=== PATIENT | male | born 1960 ===

== ENCOUNTER 2017-07-26 12:39 | Emergency (ER) | payer BC ==
[2017-07-26 12:48] VITALS: BP 138/83; PULSE 58; TEMP 97; BMI 31.1
[2017-07-26 12:53] VITALS: RESP 18; O2SAT 99
[2017-07-26] MEDS ORDERED: Iohexol 240 (50 ml) PO ONE (13:51)
[2017-07-26] MEDS ORDERED: Sodium Chloride 0.9% 1,000 ML IV STA (13:52)
[2017-07-26] MEDS ORDERED: HYDROmorphone 0.5 mg/0.5 ml ISec ONE (14:07)
--- NOTE | 2017-07-26 14:14 | ED PDOC ---
HPI: Abdomen Time Seen by Provider: 07/26/17 13:14 Chief Complaint (Nursing): Abdominal Pain Chief Complaint (Provider): Abdominal Pain History Per: Patient History/Exam Limitations: no limitations Onset/Duration Of Symptoms: Days (x2) Current Symptoms Are (Timing): Still Present Additional Complaint(s): Denilson Duffy is a 56 year old male with previous medical history of diverticulitis, hypertension and diabetes, who presents to the emergency department with a complaint of lower abdominal pain associated with subjective fever, nausea, vomiting and diarrhea. Denied chills, dysuria, hematuria, constipation or bloody stools. PMD: Karthik Cho MD Past Medical History Reviewed: Historical Data, Nursing Documentation, Vital Signs Vital Signs: Last Vital Signs Temp 97 F L 07/26/17 12:50 Pulse 58 L 07/26/17 12:50 Resp 18 07/26/17 12:50 BP 138/83 07/26/17 12:50 Pulse Ox 99 07/26/17 16:55 - Medical History PMH: Diabetes, Diverticulitis, Gastritis, HTN, Hypercholesterolemia - Surgical History Surgical History: No Surg Hx - Family History Family History: States: Unknown Family Hx - Social History Current smoker - smoking cessation education provided: Yes Alcohol: Occasional Drugs: Denies - Home Medications Home Medications: Ambulatory Orders Medication Instructions Recorded Metoclopramide [Reglan] 10 mg PO Q8 PRN #30 tab 01/29/16 Naproxen [Naprosyn] 500 mg PO BID PRN #30 tab 01/29/16 Ciprofloxacin HCl [Cipro] 500 mg PO BID #20 tablet 04/22/16 Metronidazole [Flagyl] 1 tab PO QID #40 tablet 04/22/16 Oxycodone HCl/Acetaminophen 1 each PO Q6 PRN #15 tablet 04/22/16 [Percocet 5-325 mg Tablet] - Allergies Allergies/Adverse Reactions: Allergies Allergy/AdvReac Type Severity Reaction Status Date / Time No Known Allergies Allergy Verified 01/29/16 12:08 Review of Systems ROS Statement: Except As Marked, All Systems Reviewed And Found Negative Constitutional: Positive for: Fever (subjective). Negative for: Chills Gastrointestinal: Positive for: Nausea, Vomiting, Abdominal Pain (lower), Diarrhea. Negative for: Constipation, Melena Genitourinary Male: Negative for: Dysuria, Hematuria Physical Exam - Reviewed Nursing Documentation Reviewed: Yes Vital Signs Reviewed: Yes - Physical Exam Appears: Positive for: Well, Non-toxic, No Acute Distress Head Exam: Positive for: ATRAUMATIC, NORMAL INSPECTION, NORMOCEPHALIC Skin: Positive for: Normal Color Eye Exam: Positive for: Normal appearance ENT: Positive for: Normal ENT Inspection Neck: Positive for: Normal Cardiovascular/Chest: Positive for: Regular Rate, Rhythm, Chest Non Tender Respiratory: Positive for: Normal Breath Sounds, Accessory Muscle Use. Negative for: Decreased Breath Sounds, Respiratory Distress Gastrointestinal/Abdominal: Positive for: Soft, Tenderness (suprapubic). Negative for: Normal Exam Back: Positive for: Normal Inspection. Negative for: L CVA Tenderness, R CVA Tenderness Extremity: Positive for: Normal ROM. Negative for: Tenderness, Pedal Edema, Deformity Neurologic/Psych: Positive for: Alert, Oriented - Laboratory Results Result Diagrams: 07/26/17 14:04 07/26/17 14:04 - ECG O2 Sat by Pulse Oximetry: 99 (RA) Pulse Ox Interpretation: Normal Medical Decision Making Medical Decision Making: Initial Impression: Abdominal pain R/O diverticulitis Initial Plan: * CT ABD/pelvis with PO and IV contrast * CMP * Lipase * CBC * Dilaudid 1mg IVP * NS 1,000ml IV per 150mls/hr * Omnipaque 50ml PO * Zofran inj 4mg IV * Urine C&S * Urinalysis 1649 Abd/Pelvis CT Impression: No acute findings related to/accounting for the clinical presentation. Incidental finding(s): 1.Multiple small retroperitoneal, primarily periaortic and pericaval lymph nodes. 2.Diverticulosis without an acute inflammatory component or other Associated pathologic process. Time: 1700 --Upon provider reevaluation, patient is feeling better, medically stable and requires no further treatment in the ED at this time. Creatinine level noted at 1.9 and reported incidental findings to patient. Patient will be discharged home. Counseling was provided and all questions were answered regarding diagnosis and need for follow up with PC. There is agreement to discharge plan. Return if symptoms persist or worsen. Clinical Impression: Abdominal pain Scribe Attestation: Documented by Aida Gill, acting as a scribe for Kane Pressley MD. Provider Scribe Attestation: All medical record entries made by the Scribe were at my direction and personally dictated by me. I have reviewed the chart and agree that the record accurately reflects my personal performance of the history, physical exam, medical decision making, and the department course for this patient. I have also personally directed, reviewed, and agree with the discharge instructions and disposition. Disposition - Clinical Impression Clinical Impression: Abdominal pain - Patient ED Disposition Is Patient to be Admitted: No Counseled Patient/Family Regarding: Studies Performed, Diagnosis, Need For Followup - Disposition Referrals: [facility] [Outside] [facility] [Outside] Disposition: Routine/Home Disposition Time: 17:00 Condition: IMPROVED Additional Instructions: follow up with your primary doctor in 1-2 days you have lymph nodes on your CT and your kidney function is poor. return to the ED with any worsening or concerning symptoms Instructions: Lymphadenopathy (ED) Forms: [employer] (Congolese) Print Language: CYMRAES
[2017-07-26 14:17] LABS: RBC URINE 2 /hpf (0-3); URINE BILIRUBIN NEGATIVE (NEGATIVE); URINE BLOOD SMALL (NEGATIVE); URINE COLOR YELLOW (YELLOW); URINE GLUCOSE (UA) >=500 mg/dL (Normal); URINE KETONE NEGATIVE (NEGATIVE); URINE LEUKOCYTE ESTERASE NEG Leu/uL (Negative); URINE PROTEIN >=500 mg/dL (NEGATIVE); URINE UROBILINOGEN 0.2-1.0 mg/dL (0.2-1.0); WBC URINE 4 /hpf (0-5)
[2017-07-26 14:18] LABS: BASO # 0.1 K/uL (0.0-0.2); BASO % 0.8 % (0.0-2.0); EOS # 0.1 K/uL (0.0-0.7); EOS % 1.3 % (0.0-4.0); HEMATOCRIT 52.3 % (35.0-51.0); LYMPH # 1.9 K/uL (1.0-4.3); MEAN CELL VOLUME 89.7 fl (80.0-94.0); MEAN CORPUSCULAR HEMOGLOBIN 30.4 pg (27.0-31.0); MEAN CORPUSCULAR HGB CONC 33.9 g/dL (33.0-37.0); MEAN PLATELET VOLUME 8.4 fl (7.2-11.7); MONO # 1.4 K/uL (0.0-0.8); MONO % 14.3 % (0.0-10.0); NEUT # 6.1 K/uL (1.8-7.0); NEUT % 63.6 % (50.0-75.0); RED CELL DISTRIBUTION WIDTH 14.3 % (11.5-14.5); WHITE BLOOD COUNT 9.6 K/uL (4.8-10.8)
[2017-07-26 14:26] LABS: ALB/GLOB RATIO 1.1 (1.0-2.1); BILIRUBIN,TOTAL 0.2 mg/dl (0.2-1.3); CALCIUM 8.9 mg/dL (8.4-10.2); POTASSIUM 3.8 MMOL/L (3.6-5.0); TOTAL PROTEIN 6.9 G/DL (6.3-8.2)
[2017-07-26 14:37] LABS: GRANULAR CAST 0-1 /lpf (0-1); URINE BACTERIA MOD (<OCC)
--- NOTE | 2017-07-26 16:51 | CT ---
PROCEDURE: CT Abdomen without intravenous contrast HISTORY: Unspecified abdominal pain COMPARISON: 04/22/2016 TECHNIQUE: Axial images of the abdomen from lung bases to iliac crest without intravenous contrast enhancement. Coronal and sagittal reformats generated. Oral contrast was administered. Radiation dose: Total exam DLP = mGy-cm. This CT exam was performed using one or more of the following dose reduction techniques: Automated exposure control, adjustment of the mA and/or kV according to patient size, and/or use of iterative reconstruction technique. FINDINGS: LOWER THORAX: Unremarkable. LIVER: Abnormal attenuation to hepatic parenchyma likely areas of focal fatty sparing in an otherwise fatty liver. Elective ultrasound recommended for further evaluation of these findings which are more conspicuous on the current study than seen previously. GALLBLADDER AND BILE DUCTS: Unremarkable. PANCREAS: Unremarkable. No gross lesion or ductal dilatation. SPLEEN: Unremarkable. ADRENALS: Unremarkable. No mass. KIDNEYS AND URETERS: Unremarkable. No hydronephrosis. No solid mass. VASCULATURE: Unremarkable. No aortic aneurysm. BOWEL: Diverticulosis without an acute inflammatory component or other associated pathologic process. APPENDIX: Normal appendix. PERITONEUM: Unremarkable. No free fluid. No free air. LYMPH NODES: Small retroperitoneal lymph nodes identified none larger than 1.5 cm. Precise etiology, significance is unknown. BONES: No acute fracture. OTHER FINDINGS: Bilateral fat containing inguinal hernias. IMPRESSION: No acute findings related to/accounting for the clinical presentation. Incidental finding(s): 1. Multiple small retroperitoneal, primarily periaortic and pericaval lymph nodes. 2. Diverticulosis without an acute inflammatory component or other associated pathologic process. 3. Abnormal attenuation of the liver although this is likely fatty infiltration with focal areas of sparing. Elective ultrasound advised for further evaluation
== END 2017-07-26 17:14 | disposition home or self-care (01) ==
LOC: H.ER 12:39
DX: K57.90 Diverticulosis of intestine, part unspecified, without perforation or abscess without bleeding (principal); I10 Essential (primary) hypertension; E11.9 Type 2 diabetes mellitus without complications
CPT/HCPCS: 74176; 80053; 81003; 83690; 85025; 87086; 96374; 99282; J1170; J2405; J7040; Q9966

== ENCOUNTER 2017-10-15 13:58 | Emergency (ER) | payer BC, MEDICAID ==
[2017-10-15 13:59] VITALS: BMI 31.1
[2017-10-15 14:11] VITALS: RESP 16
[2017-10-15] MEDS ORDERED: Sodium Chloride 0.9% 1,000 ML IV STA ×2 (14:33→14:35)
[2017-10-15] MEDS ORDERED: Iohexol 240 (50 ml) PO ONE (14:34)
[2017-10-15] MEDS ORDERED: Iohexol 240 (50 ml) ONE (14:41)
[2017-10-15] MEDS ORDERED: Morphine 4 MG/ML VIAL ONE ×2 (14:41→18:40)
[2017-10-15 15:18] LABS: BASO # 0.1 K/uL (0.0-0.2); BASO % 0.4 % (0.0-2.0); EOS # 0.1 K/uL (0.0-0.7); EOS % 1.1 % (0.0-4.0); HEMOGLOBIN 17.4 g/dL (12.0-18.0); LYMPH # 1.5 K/uL (1.0-4.3); LYMPH % 11.9 % (20.0-40.0); MEAN CELL VOLUME 90.6 fl (80.0-94.0); MEAN CORPUSCULAR HGB CONC 33.1 g/dL (33.0-37.0); MEAN PLATELET VOLUME 8.7 fl (7.2-11.7); MONO % 15.4 % (0.0-10.0); NEUT # 9.2 K/uL (1.8-7.0); NEUT % 71.2 % (50.0-75.0); NRBC % 0.2 % (0.0-0.0); RBC 5.81 Mil/uL (4.40-5.90); RED CELL DISTRIBUTION WIDTH 14.2 % (11.5-14.5); WHITE BLOOD COUNT 12.8 K/uL (4.8-10.8)
[2017-10-15 15:38] LABS: ALBUMIN 3.5 g/dL (3.5-5.0); CALCIUM 8.7 mg/dL (8.4-10.2)
--- NOTE | 2017-10-15 19:15 | CT ---
EXAM: CT Abdomen and Pelvis Without Intravenous Contrast CLINICAL HISTORY: 56 years old, male; Pain; Abdominal pain; Other: Lower abd; Additional info: Llq pain, rectal bleeding TECHNIQUE: Axial computed tomography images of the abdomen and pelvis without intravenous contrast. All CT scans at this facility use one or more dose reduction techniques, viz.: automated exposure control; ma/kV adjustment per patient size (including targeted exams where dose is matched to indication; i.e. head); or iterative reconstruction technique. Coronal and sagittal reformatted images were created and reviewed. COMPARISON: No relevant prior studies available. FINDINGS: Lower thorax: No acute findings. ABDOMEN: Liver: No acute abnormality as visualized. Gallbladder and bile ducts: No acute abnormality as visualized. Ultrasound can provide more sensitive evaluation of the biliary system. Pancreas: No acute abnormality as visualized. Spleen: No splenomegaly. Adrenals: No acute abnormality as visualized. Kidneys and ureters: No obstructing stones. No hydronephrosis. Stomach and bowel: Colonic diverticula. Segment of sigmoid colon demonstrates bowel wall thickening and surrounding fluid and inflammatory stranding, appearance most consistent with acute diverticulitis. Evaluation limited as enteric contrast has not yet reached this portion of the colon. No small bowel obstruction. Appendix: No findings to suggest acute appendicitis. PELVIS: Bladder: No acute abnormality as visualized. Reproductive: No acute abnormality as visualized. ABDOMEN and PELVIS: Intraperitoneal space: No free air. Bones: Degenerative changes. Degenerative disc disease with disc osteophyte formation. Facet arthropathy. Associated impression on the central canal and neural foraminal narrowing affecting the lumbosacral spine. More sensitive evaluation can be performed with MRI as warranted. Soft tissues: Bilateral inguinal fat containing hernia, right greater than left. Vasculature: Mild atherosclerosis. No abdominal aortic aneurysm. Lymph nodes: Shotty nodes. Please note evaluation for underlying visceral lesions/abnormalities limited without intravenous contrast. IMPRESSION: Appearance consistent with acute diverticulitis. Please see additional details/findings as above. Some of the above findings may warrant followup evaluation.
--- NOTE | 2017-10-15 19:19 | ED PDOC ---
HPI: Abdomen Time Seen by Provider: 10/15/17 14:20 Chief Complaint (Nursing): Abdominal Pain Chief Complaint (Provider): Left sided abdominal pain, bloody diarrhea History Per: Patient History/Exam Limitations: no limitations Onset/Duration Of Symptoms: Days Outside of [place] travel?: No Current Symptoms Are (Timing): Still Present Additional Complaint(s): Pt reports severe LLQ pain and blood in watery diarrhea. No similar in the past. Past Medical History Reviewed: Historical Data, Nursing Documentation, Vital Signs Vital Signs: Last Vital Signs Temp 96.8 F L 10/15/17 14:10 Pulse 68 10/15/17 14:10 Resp 16 10/15/17 14:10 BP 141/85 10/15/17 14:10 Pulse Ox 100 10/15/17 14:10 - Medical History PMH: Diabetes, Diverticulitis, Gastritis, HTN, Hypercholesterolemia - Surgical History Surgical History: No Surg Hx - Family History Family History: States: Unknown Family Hx - Living Arrangements Living Arrangements: With Family - Social History Current smoker - smoking cessation education provided: No - Home Medications Home Medications: Ambulatory Orders Medication Instructions Recorded Metoclopramide [Reglan] 10 mg PO Q8 PRN #30 tab 01/29/16 Naproxen [Naprosyn] 500 mg PO BID PRN #30 tab 01/29/16 Ciprofloxacin HCl [Cipro] 500 mg PO BID #20 tablet 04/22/16 Metronidazole [Flagyl] 1 tab PO QID #40 tablet 04/22/16 Oxycodone HCl/Acetaminophen 1 each PO Q6 PRN #15 tablet 04/22/16 [Percocet 5-325 mg Tablet] Ciprofloxacin [Cipro] 500 mg PO BID #20 tab 10/15/17 metroNIDAZOLE [Flagyl] 500 mg PO TID #30 tab 10/15/17 oxyCODONE/Acetaminophen [Percocet 1 ea PO Q6H PRN #15 tab 10/15/17 5/325 mg Tab] - Allergies Allergies/Adverse Reactions: Allergies Allergy/AdvReac Type Severity Reaction Status Date / Time No Known Allergies Allergy Verified 01/29/16 12:08 Review of Systems ROS Statement: Except As Marked, All Systems Reviewed And Found Negative Constitutional: Negative for: Fever, Chills Gastrointestinal: Positive for: Abdominal Pain, Diarrhea Physical Exam - Reviewed Nursing Documentation Reviewed: Yes Vital Signs Reviewed: Yes - Physical Exam Appears: Positive for: Well, Non-toxic, No Acute Distress Head Exam: Positive for: ATRAUMATIC, NORMAL INSPECTION, NORMOCEPHALIC Skin: Positive for: Normal Color, Warm, DRY Eye Exam: Positive for: Normal appearance ENT: Positive for: Normal ENT Inspection Neck: Positive for: Normal, Painless ROM Cardiovascular/Chest: Positive for: Regular Rate, Rhythm Respiratory: Positive for: Normal Breath Sounds. Negative for: Accessory Muscle Use, Respiratory Distress Gastrointestinal/Abdominal: Positive for: Bowel Sounds, Soft, Tenderness (LLQ pain) Back: Positive for: Normal Inspection Extremity: Positive for: Normal ROM Neurologic/Psych: Positive for: Alert, Oriented - Laboratory Results Result Diagrams: 10/15/17 15:11 10/15/17 15:11 - ECG O2 Sat by Pulse Oximetry: 100 Medical Decision Making Medical Decision Makin - Pt asking for food. in ER. Acute diverticulitis on cT. IV antibiotics. Pt would like to go home with medications. Discussed to return to ER for worseing pain, worsening blood. Disposition - Clinical Impression Clinical Impression: Diverticulitis - Patient ED Disposition Is Patient to be Admitted: No Counseled Patient/Family Regarding: Diagnosis, Need For Followup, Rx Given - Disposition Referrals: Waqas Malave MD [Staff Provider] - Disposition: Routine/Home Disposition Time: 19:31 Condition: GOOD Prescriptions: Ciprofloxacin [Cipro] 500 mg PO BID #20 tab metroNIDAZOLE [Flagyl] 500 mg PO TID #30 tab oxyCODONE/Acetaminophen [Percocet 5/325 mg Tab] 1 ea PO Q6H PRN #15 tab PRN Reason: Pain, Severe (8-10) Instructions: Diverticulitis (DC)
[2017-10-15] MEDS ORDERED: metroNIDAZOLE 500mg/100ml NS 100 ML IV ONE (19:30)
[2017-10-15] MEDS ORDERED: metroNIDAZOLE 500mg/100ml NS 100 ML IVPB ONE (19:32)
[2017-10-15] MEDS ORDERED: Ciprofloxacin 400mg/200ml D5W 400 MG/200 ML BAG IVPB ONE (19:33)
[2017-10-15 21:00] VITALS: BP 143/81; PULSE 81; TEMP 97.5; O2SAT 97
[2017-10-15] MEDS ORDERED: Ciprofloxacin 400mg/200ml D5W 400 MG/200 ML BAG IVPB SCH (21:00)
== END 2017-10-15 21:46 | disposition home or self-care (01) ==
LOC: H.ER 13:58
DX: K57.92 Diverticulitis of intestine, part unspecified, without perforation or abscess without bleeding (principal); E11.9 Type 2 diabetes mellitus without complications; E78.00 Pure hypercholesterolemia, unspecified; I10 Essential (primary) hypertension
CPT/HCPCS: 74176; 80053; 85025; 86850; 86900; 96365; 96367; 96375; 96376; 99283; J0744; J2270; J7040; Q9966